=== PATIENT | male | born 1985 | race Two or more races ===

== ENCOUNTER 2019-11-05 10:47 | Outpatient (CLI) | payer OTHER | END 2019-11-05 11:00 | disposition home or self-care (01) | LOC: SONOGRAMA 10:47 | PROVIDERS: ATTEND Surgery | DX: K40.90 Unilateral inguinal hernia, without obstruction or gangrene, not specified as recurrent (principal) ==

== ENCOUNTER → 2019-11-12 11:00 | Outpatient (CLI) | payer OTHER | END | disposition home or self-care (01) | LOC: LAB 11:00 | PROVIDERS: ATTEND Radiology Diagnostic Radiology | DX: N20.0 Calculus of kidney (principal) ==

== ENCOUNTER 2019-11-12 12:26 | Outpatient (CLI) | payer OTHER | END 2019-11-12 12:33 | disposition home or self-care (01) | LOC: TOM 12:26 | PROVIDERS: ATTEND Surgery | DX: K40.90 Unilateral inguinal hernia, without obstruction or gangrene, not specified as recurrent (principal) ==

== ENCOUNTER 2019-11-23 13:23 | Outpatient (CLI) | payer OTHER | END 2019-11-23 13:31 | disposition home or self-care (01) | LOC: RAD 13:23 | PROVIDERS: ATTEND Internal Medicine | DX: I10 Essential (primary) hypertension (principal) ==